=== PATIENT | male | born 1980 | race Caucasian/White ===

== ENCOUNTER 2018-07-17 14:41 | Inpatient (IN) | payer BC ==
[~2018-07-17 14:41] MED LIST: SEVOFLURANE 15 MIN
[2018-07-17 15:32] LABS: ADD MAN DIFF? NO
[2018-07-17] MEDS: SOD CHLORIDE 0.9% 1,000 ML IV (15:32)
[2018-07-17] MEDS: FAMOTIDINE 20 MG INJ IV (15:32)
[2018-07-17 15:33] LABS: WHITE BLOOD COUNT 14.9 10^3/ul (4.8-10.8)
[2018-07-17 15:33] LABS: BASOPHIL # 0.1 10^3/ul (0.0-0.1); BASOPHILS % 0.6 % (0.0-2.0); EOSINOPHILS # 0.2 10^3/ul (0.0-0.5); EOSINOPHILS % 1.1 % (0.0-7.0); HEMATOCRIT 46.9 % (42.0-52.0); HEMOGLOBIN 16.1 g/dl (14.0-18.0); LYMPHOCYTES # 2.6 10^3/ul (0.8-2.9); LYMPHOCYTES % 17.3 % (15.0-51.0); MEAN CORPUSCULAR HEMOGLOBIN 30.7 pg (29.0-33.0); MEAN CORPUSCULAR HGB CONC 34.3 g/dl (32.0-37.0); MEAN CORPUSCULAR VOLUME 89.5 fl (82.0-101.0); MEAN PLATELET VOLUME 9.3 fl (7.4-10.4); MONOCYTE # 0.7 10^3/ul (0.3-0.9); NEUTROPHIL # 11.3 10^3/ul (1.6-7.5); NEUTROPHILS % 75.6 % (39.0-77.0); PLATELET COUNT 294 10^3/UL (140-415); RED BLOOD COUNT 5.24 10^6/ul (4.70-6.10); RED CELL DISTRIBUTION WIDTH 11.9 % (11.5-14.5)
[2018-07-17] MEDS: SOD CHLORIDE 0.9% 100 ML (15:41)
[2018-07-17] MEDS: IOHEXOL 300MG/ML 150 ML BTL (15:41)
[2018-07-17 15:52] LABS: INR 0.91; PARTIAL THROMBOPLASTIN TIME 24.5 Sec (23.0-35.0); PROTIME 12.4 Sec (11.9-14.9)
[2018-07-17 15:53] LABS: ALANINE AMINOTRANSFERASE 41 IU/L (13-69); ALBUMIN/GLOBULIN RATIO 1.31; ALKALINE PHOSPHATASE 103 IU/L (42-121); ANION GAP 13 (5-13); ASPARTATE AMINO TRANSFERASE 27 IU/L (15-46); BILIRUBIN,INDIRECT 1.1 mg/dl (0-1.1); BILIRUBIN,TOTAL 1.1 mg/dl (0.2-1.3); BLOOD UREA NITROGEN 14 mg/dl (7-20); CALCIUM 10.4 mg/dl (8.4-10.2); CARBON DIOXIDE 28 mmol/L (21-31); CHLORIDE 102 mmol/L (97-110); CREATININE 0.74 mg/dl (0.61-1.24); Estimated GFR > 60 mL/min (>60); GLUCOSE 148 mg/dl (70-220); LIPASE 113 U/L (23-300); POTASSIUM 4.5 mmol/L (3.5-5.1); SODIUM 143 mmol/L (135-144); TOTAL PROTEIN 8.8 g/dl (6.1-8.1)
[2018-07-17] MEDS: ACETAMINOPHEN 325 MG TAB PO (16:31)
[2018-07-17] MEDS: PANTOPRAZOLE 40 MG INJ IV (17:56)
[2018-07-17] MEDS ORDERED: ONDANSETRON 4 MG INJ IV ×3 (18:30→22:30)
[2018-07-17] MEDS ORDERED: ACETAMINOPHEN 325 MG TAB PO ×2 (18:30→22:30)
[2018-07-17] MEDS ORDERED: ONDANSETRON 4 MG INJ (20:43)
[2018-07-17] MEDS ORDERED: METOCLOPRAMIDE 10 MG INJ (20:43)
[2018-07-17] MEDS ORDERED: MIDAZOLAM 1 MG/ML 2 ML INJ (20:43)
[2018-07-17] MEDS ORDERED: PROPOFOL 20 ML ×2 (20:43→21:10)
[2018-07-17] MEDS ORDERED: SUCCINYLCHOLINE CHLORIDE 100 MG/5 ML SYG IV (20:43)
[2018-07-17] MEDS ORDERED: FENTAnyl 50 MCG/ML VIAL (20:44)
[2018-07-17] MEDS ORDERED: ALBUTEROL/IPRATROPIUM (NEB) 3 ML AMP HHN (21:00)
[2018-07-17] MEDS ORDERED: NACL 0.9% 3 ML SYG IV (21:00)
[2018-07-17] MEDS ORDERED: ROCURONIUM 50 MG INJ (21:12)
[2018-07-17] MEDS ORDERED: GLYCOPYRROLATE 0.4 MG INJ (21:45)
[2018-07-17] MEDS ORDERED: NEOSTIGMINE 3 MG/3 ML SYRINGE (21:45)
[2018-07-17] MEDS: LACTATED RINGER'S 1,000 ML IV (22:28)
[2018-07-17] MEDS ORDERED: DIPHENHYDRAMINE 50 MG INJ IV (22:30)
[2018-07-18] MEDS: CEPASTAT LOZENGE MT (01:30)
[2018-07-18 05:17] LABS: ADD MAN DIFF? NO
[2018-07-18 05:19] LABS: WHITE BLOOD COUNT 9.5 10^3/ul (4.8-10.8)
[2018-07-18 05:19] LABS: BASOPHIL # 0.1 10^3/ul (0.0-0.1); BASOPHILS % 0.7 % (0.0-2.0); EOSINOPHILS # 0.4 10^3/ul (0.0-0.5); EOSINOPHILS % 4.3 % (0.0-7.0); HEMATOCRIT 41.4 % (42.0-52.0); HEMOGLOBIN 13.9 g/dl (14.0-18.0); LYMPHOCYTES # 3.3 10^3/ul (0.8-2.9); LYMPHOCYTES % 34.5 % (15.0-51.0); MEAN CORPUSCULAR HEMOGLOBIN 30.5 pg (29.0-33.0); MEAN CORPUSCULAR HGB CONC 33.6 g/dl (32.0-37.0); MEAN PLATELET VOLUME 9.6 fl (7.4-10.4); MONOCYTE # 0.7 10^3/ul (0.3-0.9); MONOCYTES % 7.4 % (0.0-11.0); NEUTROPHILS % 52.7 % (39.0-77.0); PLATELET COUNT 253 10^3/UL (140-415); RED BLOOD COUNT 4.55 10^6/ul (4.70-6.10); RED CELL DISTRIBUTION WIDTH 11.9 % (11.5-14.5)
[2018-07-18 06:02] LABS: ALANINE AMINOTRANSFERASE 38 IU/L (13-69); ALBUMIN/GLOBULIN RATIO 1.33; ALKALINE PHOSPHATASE 79 IU/L (42-121); ANION GAP 9 (5-13); ASPARTATE AMINO TRANSFERASE 21 IU/L (15-46); BILIRUBIN,INDIRECT 1.1 mg/dl (0-1.1); BILIRUBIN,TOTAL 1.1 mg/dl (0.2-1.3); BLOOD UREA NITROGEN 10 mg/dl (7-20); CALCIUM 9.1 mg/dl (8.4-10.2); CARBON DIOXIDE 30 mmol/L (21-31); CHLORIDE 101 mmol/L (97-110); CREATININE 0.74 mg/dl (0.61-1.24); Estimated GFR > 60 mL/min (>60); GLUCOSE 112 mg/dl (70-220); MAGNESIUM 2.1 mg/dl (1.7-2.5); SODIUM 140 mmol/L (135-144)
[2018-07-18] MEDS: PANTOPRAZOLE 40 MG INJ IV (06:05)
[2018-07-18 06:20] LABS: POTASSIUM 3.9 mmol/L (3.5-5.1)
[2018-07-18] MEDS: LACTATED RINGER'S 1,000 ML IV (08:28)
== END 2018-07-18 16:00 | disposition home or self-care (01) | DRG 395 ==
LOC: MS1 19:30 → E/R 14:41 → MS1 18:03
PROC: 0DC68ZZ Extirpation of Matter from Stomach, Via Natural or Artificial Opening Endoscopic (ICD-10-PCS; principal; 2018-07-17 20:44)
DX: K95.89 Other complications of other bariatric procedure (principal); R10.13 Epigastric pain; Z98.84 Bariatric surgery status; E66.9 Obesity, unspecified; Z68.36 Body mass index [BMI] 36.0-36.9, adult; K25.9 Gastric ulcer, unspecified as acute or chronic, without hemorrhage or perforation
CPT/HCPCS: 36415; 71045; 74177; 76705; 80053; 83690; 83735; 84100; 85025; 85610; 85730; 96374; 96375; 99285-25